=== PATIENT | male | born 1945 ===

== ENCOUNTER → 2018-04-17 | Outpatient (CLI) | payer OTHER | END | disposition home or self-care (01) | LOC: NUCLEAR 09:00 | DX: R60.0 Localized edema (principal); G90.50 Complex regional pain syndrome I, unspecified | CPT/HCPCS: 78306; 78315; 93970; A9503 ==

== ENCOUNTER 2018-04-24 10:03 | Outpatient (CLI) | payer OTHER | END 2018-04-24 10:05 | disposition home or self-care (01) | LOC: SONOGRAMA 10:03 → MAMO-SONO 10:45 | DX: M65.841 Other synovitis and tenosynovitis, right hand (principal); M65.831 Other synovitis and tenosynovitis, right forearm; M24.231 Disorder of ligament, right wrist ==

== ENCOUNTER 2022-03-30 10:38 | Outpatient (CLI) | payer OTHER | END 2022-03-30 12:11 | disposition home or self-care (01) | LOC: MRI 10:38 | PROVIDERS: ATTEND Psychiatry & Neurology Clinical Neurophysiology | DX: G31.84 Mild cognitive impairment of uncertain or unknown etiology (principal) | CPT/HCPCS: 70551 ==